=== PATIENT | male | born 1965 | race Caucasian/White ===

== ENCOUNTER 2021-01-22 21:17 | Inpatient (IN) | payer SELFPAY ==
[2021-01-22] MEDS ORDERED: ONDANSETRON 4 MG/2 ML VIAL ONE (22:21)
[2021-01-22] MEDS ORDERED: MORPHINE 4 MG/ML SYR ONE (22:21)
[2021-01-22] MEDS ORDERED: NA CHLORIDE 0.9% 1,000 ML ONE (22:21)
[2021-01-22 22:23] LABS: Absolute Lymphocytes (CBC) 2.4 K/uL (0.7-4.9); Basophils % 0.6 % (0-1.3); Hematocrit 50.3 % (39.6-49.0); Lymphocytes % 20.6 % (15.3-44.8); MPV 9.5 fL (7.6-11.3); RBC Red Blood Cell Count 5.21 M/uL (4.33-5.43)
[2021-01-22 22:24] LABS: Albumin 3.5 g/dL (3.4-5.0); Bilirubin Direct 0.3 mg/dL (0-0.2); Bilirubin Total 1.1 mg/dL (0.2-1.0); Potassium 3.9 mmol/L (3.5-5.1); Protein, Total 7.6 g/dL (6.4-8.2)
[2021-01-22 22:53] LABS: Blood Morphology Comment NOT SEEN (NOT SEEN); Platelet Estimate ADEQ; White Blood Cell Scan OK (OK)
--- NOTE | 2021-01-22 23:43 | EDPHYS ---
Physician Documentation [facility] Name: Ray Duran Age: 55 yrs Sex: Male : 1965 Arrival Date: 01/22/2021 Time: 21:20 Bed 24 Private MD: ED Physician Tanner Sanchez HPI: 01/22 22:07 This 55 yrs old Male presents to ER via Wheelchair with complaints of Abdominal Pain. jr8 22:07 The patient presents with abdominal pain right lower quadrant. Onset: The jr8 symptoms/episode began/occurred acutely, this morning. The symptoms radiate to right back. Associated signs and symptoms: Pertinent positives: nausea. The symptoms are described as stabbing. Modifying factors: The symptoms are alleviated by nothing, the symptoms are aggravated by movement. Severity of pain: At its worst the pain was moderate in the emergency department the pain is unchanged. The patient has not experienced similar symptoms in the past. The patient has not recently seen a physician. Historical: - Allergies: 21:26 No Known Allergies; lp1 - Home Meds: 21:26 pregabalin Oral [Active]; lp1 - PMHx: 21:26 nerve pain; lp1 - PSHx: 21:26 None; lp1 - Immunization history:: Adult Immunizations up to date. - Social history:: Smoking status: Patient reports the use of cigarette tobacco products, smokes one-half pack cigarettes per day. ROS: 22:07 Eyes: Negative for injury, pain, redness, and discharge, ENT: Negative for injury, jr8 pain, and discharge, Neck: Negative for injury, pain, and swelling, Cardiovascular: Negative for chest pain, palpitations, and edema, Respiratory: Negative for shortness of breath, cough, wheezing, and pleuritic chest pain, Back: Negative for injury and pain, MS/Extremity: Negative for injury and deformity, Skin: Negative for injury, rash, and discoloration, Neuro: Negative for headache, weakness, numbness, tingling, and seizure. 22:07 : Negative for injury, bleeding, discharge, and swelling. 22:07 Abdomen/GI: Positive for abdominal pain, nausea, Negative for vomiting, diarrhea. Exam: 22:07 Eyes: Pupils equal round and reactive to light, extra-ocular motions intact. Lids and jr8 lashes normal. Conjunctiva and sclera are non-icteric and not injected. Cornea within normal limits. Periorbital areas with no swelling, redness, or edema. ENT: Nares patent. No nasal discharge, no septal abnormalities noted. Tympanic membranes are normal and external auditory canals are clear. Oropharynx with no redness, swelling, or masses, exudates, or evidence of obstruction, uvula midline. Mucous membranes moist. Neck: Trachea midline, no thyromegaly or masses palpated, and no cervical lymphadenopathy. Supple, full range of motion without nuchal rigidity, or vertebral point tenderness. No Meningismus. Cardiovascular: Regular rate and rhythm with a normal S1 and S2. No gallops, murmurs, or rubs. Normal PMI, no JVD. No pulse deficits. Respiratory: Lungs have equal breath sounds bilaterally, clear to auscultation and percussion. No rales, rhonchi or wheezes noted. No increased work of breathing, no retractions or nasal flaring. Back: No spinal tenderness. No costovertebral tenderness. Full range of motion. Skin: Warm, dry with normal turgor. Normal color with no rashes, no lesions, and no evidence of cellulitis. MS/ Extremity: Pulses equal, no cyanosis. Neurovascular intact. Full, normal range of motion. Neuro: Awake and alert, GCS 15, oriented to person, place, time, and situation. Cranial nerves II-XII grossly intact. Motor strength 5/5 in all extremities. Sensory grossly intact. Cerebellar exam normal. Normal gait. 22:07 Constitutional: The patient appears alert, awake, in obvious pain, uncomfortable. 22:07 Abdomen/GI: Inspection: abdomen appears normal, Bowel sounds: active, all quadrants, Palpation: soft, in all quadrants, moderate abdominal tenderness, in the right lower quadrant, rebound tenderness, is not appreciated, voluntary guarding, is not appreciated, involuntary guarding, is not appreciated, no appreciated organomegaly, Indicators: McBurney's point is not tender, Gates's sign is negative, Rovsing's sign is negative, Liver: tenderness, is not appreciated. Vital Signs: 21:26 BP 130 / 73; Pulse 58; Resp 20; Temp 98.6(O); Pulse Ox 98% on R/A; Weight 73 kg (R); lp1 Pain 10/; 01/23 02:07 BP 98 / 63; Pulse 82; Resp 16; Temp 100.5(O); Pulse Ox 96% on R/A; iw MDM: 01/22 21:43 Patient medically screened. [facility] 23:39 Data reviewed: vital signs, nurses notes, lab test result(s), radiologic studies, CT jr8 scan. Data interpreted: Pulse oximetry: on room air is 98 %. Interpretation: normal. Counseling: I had a detailed discussion with the patient and/or guardian regarding: the historical points, exam findings, and any diagnostic results supporting the discharge/admit diagnosis, lab results, radiology results, the need for further work-up and treatment in the hospital. ED course: Dr. Chapman consulted and will see patient in the AM. To do surgery at 0900. Wants patient admitted to medicine . 01/22 21:43 Order name: Basic Metabolic Panel; Complete Time: 22:28 8 01/22 21:43 Order name: CBC with Diff; Complete Time: 22:59 [facility] 01/22 21:43 Order name: Hepatic Function; Complete Time: 22:28 [facility] 01/22 21:43 Order name: Lipase; Complete Time: 22:28 [facility] 01/22 22:53 Order name: CBC Smear Scan; Complete Time: 22:59 [facility] 01/22 22:07 Order name: CT Abd/Pelvis - IV Contrast Only [facility] 01/23 01:30 Order name: SARS-COV-2 RT PCR [facility] 01/22 21:43 Order name: IV Saline Lock; Complete Time: 21:54 [facility] 01/22 21:43 Order name: Labs collected and sent; Complete Time: 21:55 [facility] Administered Medications: 22:11 Drug: morphine 4 mg Route: IVP; Site: right antecubital; iw 22:11 Drug: NS 0.9% 1000 ml Route: IV; Rate: 1000 ml; Site: right antecubital; iw 22:12 Drug: Zofran (Ondansetron) 4 mg Route: IVP; Site: right antecubital; iw 01/23 00:03 Drug: Zosyn (piperacillin-tazobactam) 3.375 grams Route: IVPB; Infused Over: 60 mins; iw Site: right antecubital; 02:00 Drug: morphine 2 mg Route: IVP; Site: right antecubital; iw 02:06 Drug: Tylenol 1000 mg Route: PO; iw Disposition: 07:07 Co-signature as Attending Physician, Tanner Sanchez MD. mh7 Disposition: 01/22/21 23:42 Hospitalization ordered by Xavier Foley for Observation. Preliminary diagnosis is Acute appendicitis. - Bed requested for Telemetry/MedSurg (observation). - Status is Observation. iw - Condition is Fair. - Problem is new. - Symptoms have improved. Signatures: Dispatcher [employer] EDND Kylah Hoskins, RN RN iw Nadiya Arboleda, RN RN lp1 Kevin Pringle, DAVID PA jr8 Tessa Avalos, RN RN Tanner Sanchez MD MD mh7 Corrections: (The following items were deleted from the chart) 00:37 01/22 23:42 CORONAVIRUS+MR.LAB.BRZ ordered. [facility] EDND 01/23 01:42 05 23:42 Hospitalization Ordered by Xavier Foley MD for Observation. Preliminary cg diagnosis is Acute appendicitis. Bed requested for Telemetry/MedSurg (observation). Status is Observation. Condition is Fair. Problem is new. Symptoms have improved. jr8 01/23 02:09 01:42 01/22/2021 23:42 Hospitalization Ordered by Xavier Foley MD for Observation. cg Preliminary diagnosis is Acute appendicitis. Bed requested for Telemetry/MedSurg (observation). Status is Observation. Condition is Fair. Problem is new. Symptoms have improved. cg 03:06 02:09 01/22/2021 23:42 Hospitalization Ordered by Xavier Foley MD for Observation. iw Preliminary diagnosis is Acute appendicitis. Bed requested for Telemetry/MedSurg (observation). Status is Observation. Condition is Fair. Problem is new. Symptoms have improved. cg
--- NOTE | 2021-01-22 23:43 | ER ---
Nurse's Notes [facility] Name: Ray Duran Age: 55 yrs Sex: Male : 1965 Arrival Date: 01/22/2021 Time: 21:20 Bed 24 Private MD: Diagnosis: Acute appendicitis Presentation: 01/22 21:23 Chief complaint: Patient states: Reports RLQ abdominal pain that began at 0300 with lp1 nausea; Denies fever; States pain to RLQ worsening with continued nausea. Coronavirus screen: Client denies travel out of the [place] in the last 14 days. At this time, the client does not indicate any symptoms associated with coronavirus-19. Ebola Screen: No symptoms or risks identified at this time. Risk Assessment: Do you want to hurt yourself or someone else? Patient reports no desire to harm self or others. Onset of symptoms was January 22, 2021 at 03:00. 21:23 Method Of Arrival: Wheelchair lp1 21:23 Acuity: ERICK 3 lp1 21:26 Initial Sepsis Screen: Does the patient meet any 2 criteria? No. Patient's initial lp1 sepsis screen is negative. Does the patient have a suspected source of infection? No. Patient's initial sepsis screen is negative. Historical: - Allergies: 21:26 No Known Allergies; lp1 - Home Meds: 21:26 pregabalin Oral [Active]; lp1 - PMHx: 21:26 nerve pain; lp1 - PSHx: 21:26 None; lp1 - Immunization history:: Adult Immunizations up to date. - Social history:: Smoking status: Patient reports the use of cigarette tobacco products, smokes one-half pack cigarettes per day. Screenin:56 Abuse screen: Denies threats or abuse. Denies injuries from another. Nutritional iw screening: No deficits noted. Tuberculosis screening: No symptoms or risk factors identified. Fall Risk IV access (20 points). Assessment: 21:55 General: Appears in no apparent distress. Behavior is cooperative. Pain: Complains of iw pain in right lower quadrant Pain radiates to left lower quadrant. Neuro: Level of Consciousness is awake, alert, obeys commands, Oriented to person, place, time, situation. Cardiovascular: Patient's skin is warm and dry. Respiratory: Respiratory effort is even, unlabored, Respiratory pattern is regular. GI: Bowel sounds present X 4 quads. Abd is soft X 4 quads Abdomen is tender to palpation in right lower quadrant. GI: Reports lower abdominal pain, constipation, nausea, vomiting. Derm: Skin is intact, is healthy with good turgor. 22:51 Reassessment: Patient appears in no apparent distress at this time. Patient states iw feeling better. Patient states symptoms have improved. 01/23 00:41 Reassessment: Patient appears in no apparent distress at this time. Patient and/or iw family updated on plan of care and expected duration. Pain level reassessed. Vital Signs: 01/22 21:26 BP 130 / 73; Pulse 58; Resp 20; Temp 98.6(O); Pulse Ox 98% on R/A; Weight 73 kg (R); lp1 Pain 10/; 01/23 02:07 BP 98 / 63; Pulse 82; Resp 16; Temp 100.5(O); Pulse Ox 96% on R/A; iw ED Course: 01/22 21:20 Patient arrived in ED. am4 21:25 Triage completed. lp1 21:25 Arm band placed on. lp1 21:43 Kevin Pringle PA is PHCP. jr8 21:43 Tanner Sanchez MD is Attending Physician. jr8 21:55 Kylah Hoskins RN is Primary Nurse. iw 21:56 Initial lab(s) drawn, by me, sent to lab. Inserted saline lock: 20 gauge in right iw antecubital area, using aseptic technique. Blood collected. 23:12 CT Abd/Pelvis - IV Contrast Only In Process Unspecified. EDMS 23:41 Xavier Foley MD is Hospitalizing Provider. jr8 01/23 02:07 No provider procedures requiring assistance completed. Patient admitted, IV remains in iw place. Administered Medications: 01/22 22:11 Drug: morphine 4 mg Route: IVP; Site: right antecubital; iw 22:11 Drug: NS 0.9% 1000 ml Route: IV; Rate: 1000 ml; Site: right antecubital; iw 22:12 Drug: Zofran (Ondansetron) 4 mg Route: IVP; Site: right antecubital; iw 01/23 00:03 Drug: Zosyn (piperacillin-tazobactam) 3.375 grams Route: IVPB; Infused Over: 60 mins; Site: right antecubital; 02:00 Drug: morphine 2 mg Route: IVP; Site: right antecubital; iw 02:06 Drug: Tylenol 1000 mg Route: PO; iw Outcome: 01/22 23:42 Decision to Hospitalize by Provider. eric 01/23 03:06 Patient left the ED. iw Signatures: Dispatcher [employer] EDKylah Francisco RN RN iw Nadiya Arboleda RN RN lp1 Kevin Pringle PA PA jr8 Sara Montgomery
[2021-01-23] MEDS ORDERED: PIPER/TAZO/NS 3.375gm 3.375 GM/100 ML BAG ONE (00:03)
[2021-01-23] MEDS ORDERED: MORPHINE 4 MG/ML SYR ONE (00:03)
--- NOTE | 2021-01-23 00:28 | P.HP ---
Certification for Inpatient Patient admitted to: Observation With expected LOS: <2 Midnights Patient will require the following post-hospital care: None Practitioner: I am a practitioner with admitting privileges, knowledge of patient current condition, hospital course, and medical plan of care. Services: Services provided to patient in accordance with Admission requirements found in Title 42 Section 412.3 of the Code of Federal Regulations Patient History Date of Service: 01/22/21 Primary Care Provider: OOT Reason for admission: Acute appendicitis History of Present Illness: 55-year-old male with history of neuropathy presents emergency department for abdominal pain. Patient reports right lower quadrant pain that began last night. Patient evaluated in the emergency department, labs significant for white blood cell count 11.5 GFR 59, CT abdomen pelvis with IV contrast demonstrates findings compatible with acute appendicitis, right inguinal hernia containing nondilated loops of the distal ileum, wall thickening of the league urinary bladder which may be reactive power cystitis could produce this appearance, diverticulosis without acute diverticulitis. Also noted 0.5 cm hypodensity in the right hepatic lobe which may represent a small cyst. Case was discussed with General Surgery who plans for appendectomy tomorrow morning. Will admit for further evaluation and management. - Past Medical/Surgical History -: Neuropathy -: None Psychosocial/ Personal History: Patient is employed as an organizer for [employer], currently resides in [facility] - Family History Family History: Reviewed- Non-Contributory - Social History Smoking Status: Current every day smoker Counseled patient to stop smoking for: less than 10 minutes Smoking therapy provided: No Place of Residence: Home Review of Systems 10-point ROS is otherwise unremarkable Gastrointestinal: Nausea, Abdominal Pain Physical Examination - Physical Exam General: Alert, In no apparent distress, Oriented x3 HEENT: Atraumatic, PERRLA, Mucous membr. moist/pink Neck: Supple, 2+ carotid pulse no bruit, No LAD Respiratory: Clear to auscultation bilaterally, Normal air movement Cardiovascular: Regular rate/rhythm, Normal S1 S2 Gastrointestinal: Normal bowel sounds, No rebound, No guarding, Tenderness (Right lower quadrant abdominal tenderness) Musculoskeletal: No tenderness Integumentary: No rashes Neurological: Normal speech, Normal strength at 5/5 x4 extr, Normal tone, Normal affect Lymphatics: No axilla or inguinal lymphadenopathy - Studies Laboratory Data (last 24 hrs) 01/22/21 21:52: WBC 11.50 H, Hgb 17.1, Hct 50.3 H, Plt Count 155 01/22/21 21:52: Sodium 139, Potassium 3.9, BUN 12, Creatinine 1.26, Glucose 111 H, Total Bilirubin 1.1 H, AST 9 L, ALT 15, Alkaline Phosphatase 66, Lipase 116 Assessment and Plan - Plan Assessment Acute appendicitis Inguinal hernia Neuropathy Plan Acute appendicitis: NPO, surgery consulted in case discussed. Continue with Zosyn, p.r.n. pain medications and antiemetics. SCDs for DVT prophylaxis plan for appendectomy tomorrow morning. Appreciate further information from surgery. Inguinal hernia: Continue as above no incarceration/strangulation/bowel obstruction noted on CT. Neuropathy: Continue home med when appropriate - Advance Directives Does patient have a Living Will: No Does patient have a Durable POA for Healthcare: No - Code Status/Comfort Care Code Status Assessed: Yes (Full code) Critical Care: No Time Spent Managing Pts Care (In Minutes): 55
[2021-01-23] MEDS ORDERED: ACETAMINOPHEN 500 MG TAB ONE (02:22)
[2021-01-23] MEDS: PIPER/TAZO/NS 3.375gm 3.375 GM/100 ML BAG IVPB SCH ×3 (03:09→16:08)
[2021-01-23] MEDS ORDERED: ONDANSETRON 4 MG/2 ML VIAL IV PRN ×2 (03:09→10:52)
[2021-01-23] MEDS ORDERED: HYDROMORPHONE HCL 1 MG/ML INJ IV PRN ×2 (03:09→10:52)
[2021-01-23] MEDS: NA CHLORIDE 0.9% 1,000 ML IV SCH ×3 (03:33→19:09)
[2021-01-23 04:03] LABS: Absolute Lymphocytes (CBC) 1.5 K/uL (0.7-4.9); Basophils % 0.6 % (0-1.3); Lymphocytes % 12.1 % (15.3-44.8); MPV 9.4 fL (7.6-11.3); RBC Red Blood Cell Count 4.46 M/uL (4.33-5.43)
[2021-01-23 04:06] VITALS: BMI 18.8
[2021-01-23 04:15] LABS: Albumin 2.6 g/dL (3.4-5.0); Bilirubin Total 1.1 mg/dL (0.2-1.0); Potassium 3.9 mmol/L (3.5-5.1); Protein, Total 5.8 g/dL (6.4-8.2)
[2021-01-23] MEDS ORDERED: propofoL 200 MG/20 ML VIAL IV ONE (08:49)
[2021-01-23] MEDS ORDERED: FENTANYL CITR 100 MCG/2 ML ONE (08:49)
[2021-01-23] MEDS ORDERED: GLYCOPYRROLATE 0.2 MG/ML SYR ONE (08:49)
[2021-01-23] MEDS ORDERED: dexAMETHasone 4 MG/ML VIAL ONE (08:50)
[2021-01-23] MEDS ORDERED: MIDAZOLAM HCL 2 MG/2 ML INJ ONE (08:50)
[2021-01-23] MEDS ORDERED: NEOSTIGMINE 1 MG/ML -5 ML ONE (08:50)
[2021-01-23] MEDS ORDERED: LIDOCAINE 1% MPF 5 ML VIAL ONE (08:50)
[2021-01-23] MEDS ORDERED: Ringers Lactate 1,000 ML IV ONE (08:51)
[2021-01-23] MEDS ORDERED: ONDANSETRON 4 MG/2 ML VIAL ONE (08:51)
[2021-01-23] MEDS ORDERED: ROCURONIUM 50 MG/5 ML VIAL IV ONE (08:51)
[2021-01-23] MEDS ORDERED: KETOROLAC 30 MG/ML INJ ONE (08:51)
--- NOTE | 2021-01-23 10:08 | P.OP ---
Product Scientist: Sis FALCON Preoperative diagnosis: Acute Appy, RIH Postoperative diagnosis: same, suppurative, Direct RIH Primary procedure: Lap Appy Anesthesia: General Estimated blood loss: min Specimen: Appy Findings: as above Complications: None Transferred to: Recovery Room Condition: Good
--- NOTE | 2021-01-23 10:18 | PREOPCON ---
Date of Consultation: 01/23/2021 Reason For Consultation: Abdominal pain. History Of Present Illness: The patient is a 55-year-old gentleman, who comes in with a 1-day histor y of right-sided abdominal pain and periumbilical abdominal pain associated with nausea and vomiting. No diarrhea. No constipation. No blood in his stools. No dysuria or hematuria. No sore throat, runny nose, cough, headaches, or dizziness. No fever, but chills. The patient does have anorexia. Review of Systems: Otherwise unremarkable. Past Medical History: Neuropathy. Past Surgical History: Negative. Allergies: NO ALLERGIES. Social History: The patient does smoke and drinks occasionally. He has been counseled. Physical Examination: Vital Signs: His vitals are currently stable. He is afebrile. General: He is awake, alert, and oriented x3. Head and Neck: Cranial nerves 2 through 12 gross within normal limits. No neck masses. No JVD. Th roat clear. Neck: Supple. Chest: Clear. Heart: S1 and S2. Abdomen: Soft, nondistended. Positive bowel sounds. Positive right lower quadrant tenderness with rebound. No rigidity or guarding. Extremities: Adequately perfused. Nontender. Neuro: Nonfocal. Laboratory Data: CT of the abdomen and pelvis reviewed. The patient has a right inguinal hernia wit h small bowel in it, which is not dilated or appearing incarcerated. There is also acute appendiciti s, uncomplicated. White count is slightly elevated with a left shift. Assessment: Acute appendicitis and right inguinal hernia. Recommendations: We will proceed with laparoscopic appendectomy and evaluate the hernia at the same time and this can be done as simple, intraperitoneal approach. We will do it. If not, the patient w ill require an elective hernia repair at a later date. The reason is I do not want to put a mesh in an infected patient and risk having the mesh infected. Plan for care discussed with the patient. He understands risks, benefits, and alternatives and agrees to procedure. /MODL Voice ID: [id number] Report ID: [id number]
[2021-01-23] MEDS ORDERED: HYDROCODONE/APAP 7.5/325 MG TAB PO PRN (10:52)
--- NOTE | 2021-01-23 13:06 | OP ---
Date of Procedure: 01/23/2021 Surgeon: Marshall Chapman MD Expander: EZEKIEL Barrientos Preoperative Diagnosis: Acute appendicitis, right inguinal hernia. Postoperative Diagnosis: Acute appendicitis, right inguinal hernia, suppurative appendicitis and dir ect right inguinal hernia and meatus stricture at the penis. Procedure Performed: Laparoscopic appendectomy. Estimated Blood Loss: Minimal. Specimen: Appendix. Finding: As above. Anesthesia: General. Complications: None. Disposition: The patient tolerated the procedure in stable condition and taken to Recovery in good g eneral condition. Procedure In Detail: The patient was brought to the OR and placed in supine position. General anest hesia begun and the patient was prepped and draped in the usual sterile fashion. Prior to that, atte mpt was made to put a Lei, but he had a meatal stricture and at this time, it is a chronic problem. Therefore, we opted not to put the Lei and the patient voided before surgery and he will get a Ur ology consult as an outpatient to address that issue. Subsequently after the patient was prepped and draped in the usual sterile fashion, Marcaine 0.5% was infiltrated locally. A 15 blade was used to make a 1 cm supraumbilical midline incision. Subcutaneous tissue divided. Fascia was identified and divided. A #1 Vicryl stay suture was placed. Peritoneal cavity was entered with sharp and blunt di ssection. A 12 mm trocar was placed into the peritoneal cavity under direct vision. Pneumoperitoneu m was established. Then, two 5 mm trocars were placed, 1 in the suprapubic region and 1 in the left lower quadrant. Laparoscopy revealed acute suppurative appendicitis with fluid in the pelvis and the right lower quadrant, which were aspirated. Right inguinal hernia, there was a direct inguinal stefani ia and there was no bowel in it and there was a large opening, so there was no risk of incarceration. Subsequently at this point, the appendix was identified. It was plastered to the lateral wall on t he pelvic lower abdomen region. It was dissected carefully away from there and then Endo-AZRA staplin g device was used sequentially to divide the base of the appendix on the cecum as well as the mesoapp endix and this was done in a piecemeal manner as the appendix was greatly inflamed and had to be done that way similar to remove the entire appendix, which was done and it was retrieved through the umbi licus via an EndoCatch bag. Right lower quadrant was irrigated. Effluent was clear. There was no e vidence of bleeding or bowel injury appreciated. Subsequently, all trocars were removed under direct vision. Stay sutures were tied to each other across the fascial defect. Subcutaneous wounds were i rrigated. Bleeding controlled with cautery. A 3-0 chromic used to approximate the subcutaneous tiss ue and loosely close the skin. Sterile dressing was applied. The patient was awakened and taken to Recovery in good general condition. /MODL Voice ID: [id number] Report ID: [id number]
--- NOTE | 2021-01-23 13:57 | P.PN ---
Subjective Date of Service: 01/23/21 Primary Care Provider: BRUNO Chief Complaint: Acute appendicitis Subjective: Other (pain is slightly improved, no nausea, meds have helped, anxious for surgery today) Physical Examination - Vital Signs Temperature: 98.1 F Blood Pressure: 88/50 Pulse: 50 Respirations: 18 Pulse Ox (%): 97 - Studies Laboratory Data (last 24 hrs) 01/23/21 03:34: Sodium 140, Potassium 3.9, BUN 13, Creatinine 1.21, Glucose 111 H, Total Bilirubin 1.1 H, AST 7 L, ALT 12, Alkaline Phosphatase 46 01/23/21 03:34: WBC 12.70 H, Hgb 14.6 D, Hct 43.0, Plt Count 139 L 01/22/21 21:52: WBC 11.50 H, Hgb 17.1, Hct 50.3 H, Plt Count 155 01/22/21 21:52: Sodium 139, Potassium 3.9, BUN 12, Creatinine 1.26, Glucose 111 H, Total Bilirubin 1.1 H, AST 9 L, ALT 15, Alkaline Phosphatase 66, Lipase 116 Assessment & Plan Physician Review Additional Text: Physical Exam: Gen: NAD, AAOx3 HEENT: sclera anicteric, normal conjunctiva Pulm: CTAB, no w/r/r CV: regular rate and rhythm, non-labored on RA Abd: soft, mild TTP in RLQ Ext: no edema, no rash Problem List Acute appendicitis Inguinal hernia Neuropathy -NPO, IVF -general surgery consulted -Zosyn -PRN pain medication, zofran -SCDs -scheduled for OR today Dispo: anticipate dc home in 24-48hrs, pending findings in OR Time Spent Managing Pts Care (In Minutes): 35
[2021-01-24] MEDS: PIPER/TAZO/NS 3.375gm 3.375 GM/100 ML BAG IVPB SCH ×3 (00:39→16:26)
[2021-01-24] MEDS: NA CHLORIDE 0.9% 1,000 ML IV SCH ×4 (01:04→13:04)
[2021-01-24 06:09] LABS: Absolute Lymphocytes (CBC) 1.5 K/uL (0.7-4.9); Basophils % 0.2 % (0-1.3); Lymphocytes % 12.4 % (15.3-44.8); MPV 9.9 fL (7.6-11.3); RBC Red Blood Cell Count 3.95 M/uL (4.33-5.43)
[2021-01-24 06:27] LABS: Magnesium 2.2 mg/dL (1.8-2.4); Phosphorus 2.8 mg/dL (2.5-4.9); Potassium 4.5 mmol/L (3.5-5.1)
--- NOTE | 2021-01-24 11:02 | RAD REPORT ---
EXAM DESCRIPTION: ADDENDUM #1 Urgent finding reported to DAVID Dutton at 01/22/2021 11: 30 PM CDT Electronically signed by: Nelson Quinteros 01/23/2021 12:23 AM CDT End of Addendum EXAM DESCRIPTION: CT ABDOMEN AND PELVIS WITH CONTRAST CLINICAL HISTORY: ABD PAIN COMPARISON: None Available. TECHNIQUE: CT of the abdomen and pelvis performed following IV administration of iodinated contras t. This exam was performed according to our departmental dose-optimization program, which includes au tomated exposure control, adjustment of the mA and/or kV according to patient size and/or use of iter ative reconstruction technique. FINDINGS: Lung Bases: The visualized lung bases are clear. Bones: Disc height narrowing and endplate spondylosis at L5/S1. Abdomen: Liver: The liver has normal size and density. No intrahepatic biliary dilatation. 0.5 cm hypodensity in the right hepatic lobe may represent a small cyst. Gallbladder: No calcified gallstones. Spleen, Pancreas, and Adrenal Glands: The spleen, pancreas, and adrenal glands are unremarkable. Kidneys: No hydronephrosis or obstructing calculus. Vasculature: Calcified and noncalcified atherosclerotic plaque of the aorta. The portal vein is pat ent. The proximal visceral and renal arteries are patent. Stomach: Small hiatal hernia. Other: No free intraperitoneal air. Small amount of free fluid. Pelvis: Bladder: Wall thickening of the urinary bladder. Bowel: No dilated loops of large or small bowel. Right inguinal hernia containing nondilated loops of distal ileum. Scattered diverticula of the colon. Appendix: Dilated appendix with periappendiceal inflammatory change. Pelvis: Prostate is not enlarged. IMPRESSION: 1. Findings compatible with acute appendicitis. 2. Right inguinal hernia containing nondilated loops of distal ileum. 3. Wall thickening of the urinary bladder. This may be reactive however cystitis could also produce t his appearance. 4. Diverticulosis without evidence of acute diverticulitis. Electronically signed by: Nelson Quinteros 01/22/2021 11:24 PM CDT Due to temporary technical issues with the PACS/Fluency reporting system, reports are being signed by the in house radiologists without review as a courtesy to insure prompt reporting. The interpreting radiologist is fully responsible for the content of the report.
--- NOTE | 2021-01-24 13:07 | P.PN ---
Subjective Date of Service: 01/24/21 Primary Care Provider: BRUNO Chief Complaint: Acute appendicitis Subjective: Improving (no nausea/vomiting this morning. tolerated breakfast (eggs), reports moderate tenderness in abdomen, +flatus, no BM, urinating without issue) Review of Systems 10-point ROS is otherwise unremarkable Physical Examination - Vital Signs Temperature: 98.2 F Blood Pressure: 95/51 Pulse: 58 Respirations: 16 Pulse Ox (%): 97 Assessment & Plan Physician Review Additional Text: Physical Exam: Gen: NAD, AAOx3 HEENT: sclera anicteric, normal conjunctiva Pulm: CTAB, no w/r/r CV: regular rate and rhythm, non-labored on RA Abd: soft, mild-mod TTP in RLQ, surgical dressings c/d/i Ext: no edema, no rash Problem List Acute suppurative appendicitis Inguinal hernia Neuropathy -s/p appendectomy on 01/23 -continue IVF, diet advanced per surgeyr -continue Zosyn -PRN pain medication, zofran -improving, but still with moderate amount of pain -general surgery following Dispo: anticipate dc home in ~24hr Time Spent Managing Pts Care (In Minutes): 35
[2021-01-25] MEDS: PIPER/TAZO/NS 3.375gm 3.375 GM/100 ML BAG IVPB SCH ×2 (00:57→07:42)
[2021-01-25 03:58] LABS: Absolute Lymphocytes (CBC) 2.4 K/uL (0.7-4.9); Basophils % 0.5 % (0-1.3); Hematocrit 37.9 % (39.6-49.0); Lymphocytes % 19.3 % (15.3-44.8); MPV 10.1 fL (7.6-11.3); RBC Red Blood Cell Count 3.88 M/uL (4.33-5.43)
[2021-01-25 04:13] LABS: Albumin 2.2 g/dL (3.4-5.0); Bilirubin Total 0.6 mg/dL (0.2-1.0); Protein, Total 5.2 g/dL (6.4-8.2)
[2021-01-25] MEDS: NA CHLORIDE 0.9% 1,000 ML IV SCH (09:04)
--- NOTE | 2021-01-25 11:52 | P.DS ---
Admission Date: 01/23/21 Discharge Date: 01/25/21 Primary Care Provider: BRUNO Disposition: ROUTINE DISCHARGE Discharge Condition: GOOD Reason for Admission: Acute appendicitis - Problems (1) Acute appendicitis Status: Acute Qualifiers: Appendicitis perforation presence: without perforation Brief History of Present Illness: Patient is 55-year-old male with history of neuropathy who presents with complaint of abdominal pain. Patient reports right lower quadrant pain that began last night. Patient evaluated in the emergency department, labs significant for white blood cell count 11.5 GFR 59, CT abdomen pelvis with IV contrast demonstrates findings compatible with acute appendicitis, right inguinal hernia containing nondilated loops of the distal ileum, wall thickening of the league urinary bladder which may be reactive power cystitis could produce this appearance, diverticulosis without acute diverticulitis. Also noted 0.5 cm hypodensity in the right hepatic lobe which may represent a small cyst. Case was discussed with General Surgery who plans for appendectomy Hospital Course: Patient is 55-year-old male with history of neuropathy who presents who presents with complaint of abdominal pain. Patient was found to have acute appendicitis on imaging. Patient was placed on antibiotics and IV hydration. Patient was kept NPO. Surgeon was consulted. Patient had a laparoscopic appendectomy. The patient was able to tolerate his diet and had a bowel movement. Patient denied any signs or symptoms of nausea, vomiting or abdominal pain. Patient was cleared by the surgeon for discharge. Patient was given a prescription for antibiotics and pain medication by surgeon. Patient was instructed to follow up with his PCP and surgeon. Patient verbalized understanding of discharge instructions and was discharged in stable condition. Vital Signs/Physical Exam: Temp Pulse Resp BP Pulse Ox 98.3 F 66 16 101/54 L 96 01/25/21 08:00 01/25/21 08:00 01/25/21 08:00 01/25/21 08:00 01/25/21 08:00 General: Alert, In no apparent distress, Oriented x3 HEENT: Atraumatic, Normocephalic, EOMI Neck: Supple, JVD not distended Respiratory: Clear to auscultation bilaterally, Normal air movement Cardiovascular: Regular rate/rhythm, Normal S1 S2 Capillary refill: <2 Seconds Gastrointestinal: Normal bowel sounds, No tenderness Musculoskeletal: No tenderness Integumentary: No rashes Neurological: Normal speech, Normal tone, Normal affect Lymphatics: No axilla or inguinal lymphadenopathy External genitalia: Deferred Rectal: Deferred Laboratory Data at Discharge: WBC 12.20 K/uL (4.3-10.9) H 01/25/21 03:14 Hgb 12.6 g/dL (13.6-17.9) L 01/25/21 03:14 Hct 37.9 % (39.6-49.0) L 01/25/21 03:14 Plt Count 129 K/uL (152-406) L 01/25/21 03:14 Sodium 141 mmol/L (136-145) 01/25/21 03:14 Potassium 4.0 mmol/L (3.5-5.1) 01/25/21 03:14 BUN 19 mg/dL (7-18) H 01/25/21 03:14 Creatinine 0.97 mg/dL (0.55-1.3) 01/25/21 03:14 Glucose 80 mg/dL (74-106) 01/25/21 03:14 Phosphorus 2.8 mg/dL (2.5-4.9) 01/24/21 04:59 Magnesium 2.2 mg/dL (1.8-2.4) 01/24/21 04:59 Total Bilirubin 0.6 mg/dL (0.2-1.0) 01/25/21 03:14 AST 55 U/L (15-37) H 01/25/21 03:14 ALT 58 U/L (12-78) 01/25/21 03:14 Alkaline Phosphatase 37 U/L (45-117) L 01/25/21 03:14 Lipase 116 U/L (73-393) 01/22/21 21:52 Home Medications: Pregabalin [Lyrica] 150 mg PO BEDTIME 01/23/21 Diet: Regular Activity: No lifting more than 10 lbs Followup: OOT,OOT [Primary Care Provider] - Marshall Chapman MD [ACTIVE - CAN ADMIT] - If your Condition Changes
[2021-01-25 12:18] VITALS: BP 96/55; TEMP 98.8
[2021-01-25 12:33] VITALS: O2SAT 95
--- NOTE | 2021-01-25 13:06 | PN ---
Date of Progress Note: 01/25/2021 Subjective: The patient is awake, alert. Pain is much better. Tolerating diet, ambulating. Pain c ontrolled on p.o. pain medications. Objective: Vital Stable: Afebrile. Abdomen: Benign. Laboratory Data: White count is still slightly elevated. Assessment: Status post laparoscopic appendectomy. Recommendations: Cleared for discharge. Antibiotics, Cipro and Flagyl prescription given. [place], so he will follow up on a p.r.n. basis with me. He can follow up with a pr physician in [place]. /MODL Voice ID: [id number] Report ID: [id number]
== END 2021-01-25 12:00 | disposition home or self-care (01) | DRG 343 ==
LOC: ER 21:17 → ERHOLD 01-23 00:15 → 4TH 01-23 02:21 → OBSVTOIN 01-23 09:01
PROVIDERS: ADMIT Hospitalist; ATTEND Internal Medicine
PROC: 0DTJ4ZZ Resection of Appendix, Percutaneous Endoscopic Approach (ICD-10-PCS; principal; 2021-01-23 09:00)
DX: K35.80 Unspecified acute appendicitis (principal); F17.210 Nicotine dependence, cigarettes, uncomplicated; K40.90 Unilateral inguinal hernia, without obstruction or gangrene, not specified as recurrent; G62.9 Polyneuropathy, unspecified; F41.9 Anxiety disorder, unspecified; Z71.6 Tobacco abuse counseling; Z79.899 Other long term (current) drug therapy; Z20.822 Contact with and (suspected) exposure to COVID-19
CPT/HCPCS: 36415; 74177; 80048; 80053; 80076; 83690; 83735; 84100; 85025; 88304; 94010; 96374; 96375; 99284; G0378; J1100; J2250; J2405; J2543; J2704; J2710; J3010; J7030; J7120; Q9967; U0003